=== PATIENT | male | born 1980 | race Two or more races ===

== ENCOUNTER 2021-06-18 13:09 | Emergency (ER) | payer OTHER ==
[~2021-06-18] VITALS: Ht 170.2 cm; Wt 81.6 kg
[2021-06-18 20:10] VITALS: BP 122/73
== END 2021-06-18 20:15 | disposition home or self-care (01) ==
LOC: EDBD 13:09 → ER 13:09
DX: M79.10 Myalgia, unspecified site (principal); M54.9 Dorsalgia, unspecified; W01.198A Fall on same level from slipping, tripping and stumbling with subsequent striking against other object, initial encounter; Y93.89 Activity, other specified; Y92.89 Other specified places as the place of occurrence of the external cause; Y99.0 Civilian activity done for income or pay
CPT/HCPCS: 72070; 72100